=== PATIENT | female | born 1965 | race Caucasian/White ===

== ENCOUNTER → 2023-11-05 09:21 | Outpatient (REF) | payer OTHER, SELFPAY | LOC: WDC 09:21 | PROVIDERS: ATTENDING PHYSICIAN Internal Medicine | DX: Z12.31 Encounter for screening mammogram for malignant neoplasm of breast (principal) | CPT/HCPCS: 77063; 77067 ==

== ENCOUNTER → 2024-04-09 15:20 | Outpatient (REF) | payer OTHER, SELFPAY | LOC: RAD 15:20 | PROVIDERS: ATTENDING PHYSICIAN Family Medicine | DX: R05.1 Acute cough (principal) | CPT/HCPCS: 71046 ==

== ENCOUNTER → 2024-11-21 07:37 | Outpatient (REF) | payer OTHER, SELFPAY | LOC: MRI 07:37 | PROVIDERS: ATTENDING PHYSICIAN Podiatrist Primary Podiatric Medicine; FAMILY PHYSICIAN Family Medicine | DX: M84.371A Stress fracture, right ankle, initial encounter for fracture (principal) | CPT/HCPCS: 73720; A9575 ==

== ENCOUNTER → 2024-12-06 19:23 | Outpatient (REF) | payer OTHER, SELFPAY | LOC: WDC 19:23 | PROVIDERS: ATTENDING PHYSICIAN Family Medicine | DX: Z12.31 Encounter for screening mammogram for malignant neoplasm of breast (principal) | CPT/HCPCS: 77063; 77067 ==